=== PATIENT | female | born 1985 | race Hispanic/Latino ===

== ENCOUNTER 2021-12-08 10:37 | Outpatient (CLI) | payer BC, SELFPAY ==
[2021-12-08 10:51] LABS: Basophils Absolute Auto 0.1 K/mm3 (0.0-0.1); Basophils Percent Auto 0.9 % (0.2-1.2); Eosinophils Absolute Auto 0.1 K/mm3 (0-0.3); Eosinophils Percent Auto 1.3 % (0-4.4); Hematocrit 33.6 % (37.0-47.0); Hemoglobin 10.2 g/dL (12.0-15.0); Immature Granulocyte Absolute 0.02 K/mm3 (0.00-0.031); Immature Granulocyte Percent A 0.3 % (0-0.5); Lymphocytes Absolute Auto 2.34 K/mm3 (0.9-3.2); Lymphocytes Percent Auto 36.7 % (18.3-44.2); Mean Corpuscular HGB Conc 30.4 g/dl (32-36); Mean Corpuscular Hemoglobin 27.1 pg (26-34); Mean Corpuscular Volume 89.4 fl (80-100); Mean Platelet Volume 10.2 fl (7.4-10.4); Monocytes Absolute Auto 0.3 K/mm3 (0.1-0.6); Monocytes Percent Auto 5.3 % (2.6-8.5); Neutrophils Absolute Auto 3.5 K/mm3 (1.3-6.7); Neutrophils Percent Auto 55.5 % (45.5-73.1); Platelet Count Result 361 k/mm3 (150-375); Red Blood Count 3.76 M/mm3 (4.2-5.4); Red Cell Distribution Width 14.9 % (11.5-14.5); White Blood Count 6.4 K/mm3 (4.5-10.0)
[2021-12-08 11:01] LABS: Alanine Aminotransferase 9 U/L (6-35); Albumin Level 4.5 g/dL (3.5-5.1); Alkaline Phosphatase 62 U/L (38-126); Amylase 93 U/L (30-110); Anion Gap 8 mmol/L (8-16); Aspartate Amino Transferase 17 U/L (14-36); Bilirubin,Total 0.4 mg/dL (0.2-1.3); Blood Urea Nitrogen 13 mg/dL (7-17); Calcium 8.9 mg/dL (8.4-10.2); Carbon Dioxide 27 mmol/L (22-30); Chloride 105 mmol/L (98-107); Estimated Glomerular Filt Rate > 60; Glucose 70 mg/dL (65-110); Lipase 92 U/L (23-300); Sodium 140 mmol/L (137-145)
== END 2021-12-08 10:38 | disposition home or self-care (01) ==
PROVIDERS: PCP Internal Medicine; Visit Provider Surgery
DX: R10.11 Right upper quadrant pain (principal)
CPT/HCPCS: 36415; 80053; 82150; 83690; 85025

== ENCOUNTER 2021-12-15 00:15 | Day surgery (SDC) | payer BC, SELFPAY ==
[2021-12-10 10:19] VITALS: BMI 25.6
[2021-12-15 12:15] VITALS: BP 95/56; PULSE 85; RESP 16; TEMP 36.7; O2SAT 100
[2021-12-15] MEDS: LACTATED RINGERS 1,000 ML 150 ML IV CONT (12:17)
--- NOTE | 2021-12-15 12:36 | WPDANESEPPF ---
Anes - Initial Pre Proc Eval Procedure: Operation Date: 12/15/21 13:30 Proposed Procedures p Esophagogastroduodenoscopy - Bernardo Alvarado MD Date/Time: 12/15/21 12:36 Surgeon: Bernardo Alvarado MD Pre Op Diagnosis: RUQP Patient Data Age: 36 Gender: F Height: 1.63 m Weight: 66.7 kg Last Vital Signs Temp 36.7 C 12/15/21 12:15 Pulse 85 12/15/21 12:15 Resp 16 12/15/21 12:15 BP 95/56 L 12/15/21 12:15 Pulse Ox 100 12/15/21 12:15 O2 Del Method Room Air 12/15/21 12:15 Allergies Allergy/AdvReac Type Severity Reaction Status Date / Time Penicillins Allergy Unknown Verified 12/15/21 12:14 Home Medications Medication Instructions Recorded Confirmed Type bupropion HCl 150 mg 24 hr tablet, 150 mg PO QAM 12/08/21 12/15/21 History extended release rosuvastatin 40 mg tablet (Crestor) 40 mg PO DAILY 12/08/21 12/15/21 History Patient hx anesthesia problems: none Family hx anesthesia problems: none Results Review: All pre-operative results and documents have been reviewed as part of the pre-operative evaluation. [facility] Past Medical History Medical History (Updated 12/08/21 @ 10:38 by Olinda Iglesias) Asthma Depression GERD (gastroesophageal reflux disease) High cholesterol Peptic ulcer disease Surgical History Surgical History (Updated 12/08/21 @ 10:38 by Olinda Iglesias) H/O gastric sleeve 2020 Family History Family History (Updated 12/08/21 @ 09:55 by MAGDY Blandon) Other Cerebrovascular accident Diabetes mellitus Heart disease Hypertension Social History Social History (Updated 12/08/21 @ 09:55 by MAGDY Blandon) Smoking status: Never smoker Alcohol intake: never Substance use: current Substance use type: does not use Living arrangements: with roommate(s) Spiritual care concerns: No Anes - Eval Final PreProcedure Day of Procedure 12/15/21 12:36 Patient weight: normal Heart: regular rate and rhythm Lungs: clear to auscultation and normal air movement Airway: Mallampati scale class II Neurological: alert and oriented Last oral intake: >/= 8 hours ASA classification: II Emergent: no Anesthetic plan: proceed Anesthesia type and monitoring: general GIVS Results Review: All pre-operative results and documents have been reviewed as part of the pre-operative evaluation. Informed Consent: The patient's anesthetic plan and its attendant risks and benefits were discussed with the patient/family/POA. Questions were solicited and answers provided to the satisfaction of the patient/family/POA.
--- NOTE | 2021-12-15 13:03 | PM.HPGS ---
History of Present Illness History of Present Illness Consent: Risks, benefits, and alternatives have been discussed and questions answered. Patient agrees to proceed with procedure. Chief complaint: RUQP Narrative: Luz Maria Hunter is a 36 year old female with intermittent ruq pain (ultrasound showed cholelithiasis), remote history of gastric sleeve and currently using ppi but not helping. Review of Systems Constitutional: Constitutional: Denies headache(s) and Denies weakness Eyes: Eyes: Denies blurry vision ENT: Reports Normal hearing present, Denies headache(s) and Denies neck pain Cardiovascular: Cardiovascular: Denies chest pain and Denies dyspnea Respiratory: Respiratory: Denies dyspnea Gastrointestinal: Gastrointestinal: Reports no additional gastrointestinal complaints Genitourinary: Genitourinary: Denies dysuria Musculoskeletal: Musculoskeletal: Denies neck pain Integumentary/Breasts: Skin/Breast: Denies dry skin Neurologic: Reports Normal hearing present, Denies headache(s) and Denies weakness Psychiatric: Psychiatric: Denies anxiety Endocrine: Endocrine: Denies change in body appearance Hematologic/Lymphatic: Hematologic/Lymphatic: Denies easy bleeding Allergic/Immunologic: Allergic/Immunologic: Denies urticaria PMFSH Past Medical History Medical History (Updated 12/08/21 @ 10:38 by Olinda Iglesias) Asthma Depression GERD (gastroesophageal reflux disease) High cholesterol Peptic ulcer disease Surgical History Surgical History (Updated 12/08/21 @ 10:38 by Olinda Iglesias) H/O gastric sleeve 2020 Family History Family History (Updated 12/08/21 @ 09:55 by MAGDY Blandon) Other Cerebrovascular accident Diabetes mellitus Heart disease Hypertension Social History Social History (Updated 12/08/21 @ 09:55 by MAGDY Blandon) Smoking status: Never smoker Alcohol intake: never Substance use: current Substance use type: does not use Living arrangements: with roommate(s) Spiritual care concerns: No Meds Home Medications and Allergies Home Medications Medication Instructions Recorded Confirmed Type bupropion HCl 150 mg 24 hr tablet, 150 mg PO QAM 12/08/21 12/15/21 History extended release rosuvastatin 40 mg tablet (Crestor) 40 mg PO DAILY 12/08/21 12/15/21 History Allergies Allergy/AdvReac Type Severity Reaction Status Date / Time Penicillins Allergy Unknown Verified 12/15/21 12:14 Vital Signs Vital Signs - 24 hr 12/15/21 12:15 Temperature 98.1 F Pulse Rate 85 Respiratory Rate 16 Blood Pressure 95/56 L Pulse Oximetry 100 Oxygen Delivery Room Air Exam Const: General: comfortable and no acute distress HENMT: General nose exam: Normal nares present Eyes: General: appearance normal, both eyes and all related structures Neck: Neck: no JVD Resp: Auscultation: clear to auscultation bilaterally Cardio: Rate: regular rate Rhythm: regular rhythm GI: Inspection: non-distended GI Palp: Yes Soft to palpation Skin: General skin exam: normal color Neuro: General: gait normal Speech: normal speech Extrem: General: normal to inspection Psych: Mental Status: mental status grossly normal Assessment and Plan Assessment and plan (1) RUQ pain: Code(s): R10.11 - Right upper quadrant pain Status: Acute Assessment and Plan: will assess if pud, etc if negative then she will see again surgery for consideration of cholecystectomy if persistent pain (2) Cholelithiasis: Code(s): K80.20 - Calculus of gallbladder without cholecystitis without obstruction Status: Acute (3) H/O gastric sleeve: Code(s): Z90.3 - Acquired absence of stomach [part of] Status: Acute
[2021-12-15 13:15] VITALS: BP 104/46; PULSE 56; RESP 16; O2SAT 100
[2021-12-15 13:25] VITALS: BP 95/54; PULSE 75; RESP 14; O2SAT 100
[2021-12-15 13:35] VITALS: BP 100/55; PULSE 69; RESP 17; O2SAT 100
== END 2021-12-15 14:07 | disposition home or self-care (01) ==
PROVIDERS: PCP Internal Medicine; Visit Provider Internal Medicine Gastroenterology
PROC: 0DJ08ZZ Inspection of Upper Intestinal Tract, Via Natural or Artificial Opening Endoscopic (ICD-10-PCS; CPT 43235; principal; 2021-12-15 13:30)
DX: R10.11 Right upper quadrant pain (principal); G43.909 Migraine, unspecified, not intractable, without status migrainosus; K29.50 Unspecified chronic gastritis without bleeding; F32.A Depression, unspecified; K21.9 Gastro-esophageal reflux disease without esophagitis; E78.00 Pure hypercholesterolemia, unspecified; Z87.11 Personal history of peptic ulcer disease; Z90.3 Acquired absence of stomach [part of]
CPT/HCPCS: 43239; 88305; J2704; J7120

== ENCOUNTER 2021-12-21 00:38 | Day surgery (SDC) | payer BC, SELFPAY ==
[2021-12-17 12:32] VITALS: BMI 25.2
--- NOTE | 2021-12-17 12:39 | PC.NURSE ---
Report to the Outpatient Waiting Room, entrance under the green pavilion located off [facility], at time 0600 on date 12/21/21. OR Time: 0730. - You and your visitor will be asked a series of questions to screen for COVID 19 for your protection. - Only one visitor is allowed at this time. - The patient visitor is requested to leave or wait in car when not with patient. - A mask is required within the hospital. Patients may have clear liquids (water, carbonated beverages, clear teas, apple juice) until 3 hours prior to surgery with a maximum of 20 ounces. - No food from midnight until time of surgery Take the following medications with a SIP of water the morning of surgery: WELLBUTRIN Medications to discontinue per physician: N/A Date to take last dose: N/A Please no make-up, nail romansh, hairspray, perfume, deodorant, or body powder the day of surgery. No jewelry (including any body piercings) or valuables the day of surgery, leave them at home. Please take a shower or bath the night before, or the morning of, surgery with an antibacterial soap(HIBICLENS). Wear comfortable, loose fitting clothing. - Jewelry must be removed prior to entering the operating room. Rings and piercings that are not removed may be cut off. - The hospital will not accept responsibility for valuables. - Please leave all valuables, including medications, at home the day of surgery. If you are going home after surgery, a licensed delivery motorcycle driver must drive you home. - NO public transportation without another adult. - We recommend that an adult stay with you for 24 hours following discharge. - We also recommend that you do not drive, make important decision, drink alcoholic beverages, or take any drugs that were not prescribed by your health care provider for at least 24 hours after your discharge time. Follow any additional instructions given to you from your surgeon. If you or anyone in your household have experienced Covid symptoms in the past week, please notify your surgeon or the nurse liaison at the phone number below for possible testing. Telephone instructions given to PT - JERALD RUSH and asked if any additional questions and then verbalized understanding. Patient advised to call surgeon office or pre surgery nurse liaison [phone] if any additional questions.
[2021-12-21] VITALS (14 sets, daily range): BP systolic 92–117; BP diastolic 57–73; PULSE 54–105; RESP 10–25; TEMP 36.2–36.3; O2SAT 100
--- NOTE | 2021-12-21 05:55 | ECG_ITS ---
Measurements Intervals [place] Rate: 70 P: 60 SC: 136 QRS: 55 QRSD: 82 T: 48 QT: 408 QTc: 442 Interpretive Statements SINUS RHYTHM NORMAL ECG NO PREVIOUS ECG AVAILABLE FOR COMPARISON Electronically Signed On 12-21-2021 14:07:47 CDT by Reggie Luz M.D.
[2021-12-21] MEDS: LACTATED RINGERS 1,000 ML 30 ML IV CONT ×3 (06:50→11:59)
[2021-12-21] MEDS: KETOROLAC 15 MG/ML VIAL (*BKC) IV PUSH (07:00)
[2021-12-21] MEDS: ACETAMINOPHEN 500 MG TABLET 1000 MG PO (07:01)
--- NOTE | 2021-12-21 07:11 | WPDANESEPPF ---
Anes - Initial Pre Proc Eval Procedure: Operation Date: 12/21/21 07:30 Proposed Procedures p Laparoscopic Cholecystectomy with Possible Intraoperative Cholangiogram, Possible Open - Panchito Avila MD Date/Time: 12/21/21 07:11 Surgeon: Panchito Avila MD Pre Op Diagnosis: Cholelithiasis Patient Data Age: 36 Gender: F Height: 1.63 m Weight: 66.68 kg Allergies Allergy/AdvReac Type Severity Reaction Status Date / Time Penicillins Allergy Anaphylaxis Verified 12/17/21 12:31 Home Medications Medication Instructions Recorded Confirmed Type bupropion HCl 150 mg 24 hr tablet, 150 mg PO QAM 12/08/21 12/17/21 History extended release rosuvastatin 40 mg tablet (Crestor) 40 mg PO DAILY 12/08/21 12/17/21 History Laboratory Tests 12/21/21 06:53 Total Bilirubin Pending Direct Bilirubin Pending AST Pending ALT Pending Alkaline Phosphatase Pending Total Protein Pending Albumin Pending Amylase Pending Lipase Pending Patient hx anesthesia problems: none Family hx anesthesia problems: none Results Review: All pre-operative results and documents have been reviewed as part of the pre-operative evaluation. [facility] Past Medical History Medical History (Updated 12/08/21 @ 10:38 by Olinda Iglesias) Asthma Depression GERD (gastroesophageal reflux disease) High cholesterol Peptic ulcer disease Surgical History Surgical History (Updated 12/08/21 @ 10:38 by Olinda Iglesias) H/O gastric sleeve 2020 Family History Family History (Updated 12/08/21 @ 09:55 by MAGDY Blandon) Other Cerebrovascular accident Diabetes mellitus Heart disease Hypertension Social History Social History (Updated 12/08/21 @ 09:55 by MAGDY Blandon) Smoking status: Never smoker Alcohol intake: never Substance use: current Substance use type: does not use Living arrangements: with family Spiritual care concerns: No Anes - Eval Final PreProcedure Day of Procedure 12/21/21 07:11 Patient weight: normal Heart: regular rate and rhythm Lungs: clear to auscultation Airway: Mallampati scale class II Neurological: alert and oriented Last oral intake: >/= 8 hours ASA classification: II Emergent: no Anesthetic plan: proceed Anesthesia type and monitoring: general ETT and standard monitoring Results Review: All pre-operative results and documents have been reviewed as part of the pre-operative evaluation. Informed Consent: The patient's anesthetic plan and its attendant risks and benefits were discussed with the patient/family/POA. Questions were solicited and answers provided to the satisfaction of the patient/family/POA.
--- NOTE | 2021-12-21 07:16 | WPDHPUPDATE1 ---
History and Physical Update Update Date/Time: 12/21/21 07:16 History and Physical has been reviewed, including an updated exam of the patient. There are changes in the patient's condition. She has had an EGD with Dr. Vasquez which showed only mild gastritis and no other explanation for her continuing epigastric pain. We now plan a laparoscopic cholecystectomy, poss IOC, possible open cholecystectomy.. Risks, benefits, and alternatives have been discussed and questions answered. Patient agrees to proceed with procedure.
[2021-12-21 07:18] LABS: Alanine Aminotransferase 10 U/L (6-35); Albumin Level 4.1 g/dL (3.5-5.1); Alkaline Phosphatase 55 U/L (38-126); Amylase 86 U/L (30-110); Aspartate Amino Transferase 19 U/L (14-36); Bilirubin,Total 0.6 mg/dL (0.2-1.3); Lipase 91 U/L (23-300)
[2021-12-21] MEDS: ceFAZolin 2 GM/D5W 50 ML 2 GM/50 ML BAG IVPB (07:33)
[2021-12-21] MEDS: BUPIVACAINE/EPINEPHRINE 0.25% 50 ML VIAL INFILTRATE (09:00)
--- NOTE | 2021-12-21 09:24 | W.PM.PROC2 ---
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 She also had some left upper quadrant pain. Prior to committing to the operation we had her see GI and an EGD was done showing only mild gastritis and a well completed sleeve gastrectomy. She has been on PPI twice a day for about 2 weeks. (pantoprazole 40 mg b.i.d.) Findings Unremarkable bluish gallbladder slightly distended. No significant adhesions under the umbilicus or in the right upper quadrant. Left lobe of the liver was visual visualized but no other specific investigation of the left upper quadrant ensued. No groin hernias identified on initial exploration. Description of Procedure Patient was seen preoperatively in the holding area and risks, benefits and alternatives confirmed. Patient was taken to the operating room and general anesthesia was induced. A time out was then preformed with the surgery team confirming patient and site of surgery. The abdomen was prepped and draped in the usual sterile fashion. Incision was made just below the umbilicus with an 11 blade knife. The patient had lost a lot a weight so tissues were spongy and it was a fairly deep incision at the umbilicus. Were able to get in successfully under direct vision and placed the Ahuja cannula. Placed 2 stay sutures of O- Vicryl on either side of the mid-line fascia beneath the umbilicus and was then able to slide in the Ahuja cannula through the fascial defect into the peritoneum. First under low flow and then under high flow the abdomen was insufflated with carbon dioxide never exceeding a pressure of 14. Three 5 mm trocars were then introduced under direct vision. The following trocars were introduced under direct vision: a 5 mm in the epigastrium and two 5 mm trocars along the right costal margin laterally in the subcostal area. I did place the epigastric port right at 1 the scars from her previous sleeve gastrectomy surgery. There were not any adhesions to the underside of the gallbladder. I then carefully used the L-shaped cautery and the [place] dissector to dissect out the triangle of [place]. This patient's anatomy was very clear. i was then was able to dissect out both the cystic duct and cystic artery and identify a window of safety. The gall bladder was grasped and the cystic duct and artery were dissected free and clipped with an 5 mm endo-clip stove polisher. The cystic duct and artery were clipped with use of 2 clips on the patient's side 1 on the gallbladder side utilizing a 5 mm endoclip-stove polisher. The cystic duct was then transected. The cystic artery was also transected at this point. The gall bladder was removed using electrocautery and then removed from the abdomen using a large 10 mm grasper via the umbilical incision. The trocars were removed visualizing hemostasis and the remaining gas evacuated. Because the tissues were so deep I felt that we would get a better closure if we used the Kaveh cone and a 1. Vicryl to be passed with a needle Passer. This was done while watching from the subcostal ports with the 5 mm laparoscoped. Two separate 1. Vicryl sutures were passed to approximate the fascia after removing the Crow cannula under direct vision. These 2 sutures were left long and then after we let all the gas of his escape and removed the 5 mm ports we proceeded to close the more super fashion visual area of the umbilical incision in the standard way as described below. The large trocar site at the umbilicus was closed with use of the 2 stay sutures of 0 Vicryl mentioned above and also a figure of 8 O-Vicryl suture. The 2 s
[2021-12-21] MEDS: fentaNYL CITRATE INJ (*CRX) 100 MCG/2 ML VIAL 25 MCG IV PUSH (10:45)
[2021-12-21] MEDS: ONDANSETRON INJ 4 MG/2 ML VIAL IV PUSH (11:35)
--- NOTE | 2021-12-21 11:45 | SUR.PHASEII ---
CORRECTION: CHARTING ON WORKLIST AT 1125 SHOULD BE AT 1056.
[2021-12-21] MEDS: diphenhydrAMINE HCl INJ 50 MG/ML VIAL 12.5 MG IV PUSH (11:58)
--- NOTE | 2021-12-21 12:16 | SUR.PHASEII ---
NAUSEA SOMEWHAT BETTER.
[2021-12-21] MEDS: oxyCODONE HCL (*CRX) 5 MG TAB IR PO (13:04)
== END 2021-12-21 13:34 | disposition home or self-care (01) ==
PROVIDERS: PCP Internal Medicine; Visit Provider Surgery
PROC: 0FT44ZZ Resection of Gallbladder, Percutaneous Endoscopic Approach (ICD-10-PCS; CPT 47562; principal; 2021-12-21 07:30)
DX: K81.1 Chronic cholecystitis (principal); K21.9 Gastro-esophageal reflux disease without esophagitis; F32.A Depression, unspecified; J45.909 Unspecified asthma, uncomplicated; E78.00 Pure hypercholesterolemia, unspecified; Z87.11 Personal history of peptic ulcer disease; Z90.3 Acquired absence of stomach [part of]; F41.9 Anxiety disorder, unspecified; R10.11 Right upper quadrant pain; R50.9 Fever, unspecified; K29.70 Gastritis, unspecified, without bleeding
CPT/HCPCS: 47562; 36415; 80076; 82150; 83690; 88304; 93005; A9270; J0690; J1100; J1170; J1200; J1885; J2250; J2405; J2704; J2710; J3010; J7030; J7120; Q9966

== ENCOUNTER 2021-12-28 12:08 | Emergency (ER) | payer BC, SELFPAY ==
--- NOTE | ~2021-12-28 | CT_ITS ---
EXAMINATION: CT abdomen pelvis w con DATE: 12/28/2021 14:20 INDICATION: Abdominal pain. TECHNIQUE: Computed tomography (CT) of the abdomen and pelvis was performed with 100 mL Omnipaque 350 intravenous contrast. Automated exposure control and iterative reconstruction technique were employe d. The dose-length product was 290.98 mGy-cm. COMPARISON: None. FINDINGS: The visualized portions of the lung bases are clear without pneumonia or pleural effusion. The heart size is normal. No pericardial effusion. There are surgical changes of the stomach. There a re changes of cholecystectomy. The spleen, pancreas, adrenal glands, and kidneys are normal. There ar e no dilated loops of bowel. The appendix is normal. There is subcutaneous fat stranding around the u mbilicus, consistent with inflammation from recent surgery. There are no pathologically enlarged lymp h nodes. There is no free intraperitoneal fluid. There is mild thoracolumbar spondylosis. IMPRESSION: 1. Expected findings of recent cholecystectomy. Reviewed, dictated and finalized at location A.
--- NOTE | 2021-12-28 12:09 | ECG_ITS ---
Measurements Intervals [place] Rate: 80 P: 52 NC: 133 QRS: 53 QRSD: 77 T: 32 QT: 359 QTc: 416 Interpretive Statements SINUS RHYTHM COMPARED TO ECG 12/21/2021 07:04:07 NO SIGNIFICANT CHANGES Electronically Signed On 12-29-2021 16:22:49 CDT by Bee Baldwin M.D.
[2021-12-28 12:11] VITALS: BP 107/76; PULSE 80; RESP 14; TEMP 36.9; O2SAT 100
[2021-12-28 12:19] LABS: Glucose Point of Care 75 mg/dl (65-105)
[2021-12-28 12:44] VITALS: BP 101/69; PULSE 75; RESP 10; TEMP 37; O2SAT 100
[2021-12-28 13:38] LABS: Basophils Absolute Auto 0.1 K/mm3 (0.0-0.1); Basophils Percent Auto 1.1 % (0.2-1.2); Eosinophils Absolute Auto 0.1 K/mm3 (0-0.3); Eosinophils Percent Auto 2.1 % (0-4.4); Hematocrit 36.4 % (37.0-47.0); Hemoglobin 10.5 g/dL (12.0-15.0); Immature Granulocyte Absolute 0.02 K/mm3 (0.00-0.031); Immature Granulocyte Percent A 0.3 % (0-0.5); Lymphocytes Percent Auto 35.6 % (18.3-44.2); Mean Corpuscular HGB Conc 28.8 g/dl (32-36); Mean Corpuscular Hemoglobin 26.4 pg (26-34); Mean Corpuscular Volume 91.5 fl (80-100); Mean Platelet Volume 10.6 fl (7.4-10.4); Monocytes Absolute Auto 0.3 K/mm3 (0.1-0.6); Neutrophils Absolute Auto 3.5 K/mm3 (1.3-6.7); Neutrophils Percent Auto 55.9 % (45.5-73.1); Platelet Count Result 330 k/mm3 (150-375); Red Blood Count 3.98 M/mm3 (4.2-5.4); Red Cell Distribution Width 14.6 % (11.5-14.5); White Blood Count 6.2 K/mm3 (4.5-10.0)
[2021-12-28] MEDS: SODIUM CHLORIDE 0.9% IV 1,000 ML 999 ML IV CONT (13:43)
[2021-12-28 13:53] LABS: Lipase 94 U/L (23-300); Magnesium 1.9 mg/dL (1.6-2.3)
[2021-12-28 13:55] LABS: Alanine Aminotransferase 13 U/L (6-35); Albumin Level 4.9 g/dL (3.5-5.1); Alkaline Phosphatase 69 U/L (38-126); Anion Gap 12 mmol/L (8-16); Aspartate Amino Transferase 21 U/L (14-36); Bilirubin,Total 0.5 mg/dL (0.2-1.3); Blood Urea Nitrogen 9 mg/dL (7-17); Calcium 9.4 mg/dL (8.4-10.2); Carbon Dioxide 24 mmol/L (22-30); Chloride 104 mmol/L (98-107); Estimated CRCL calculation 84 ml/min; Estimated Glomerular Filt Rate > 60; Glucose 74 mg/dL (65-110); Potassium 4.6 mmol/L (3.4-5.0); Sodium 140 mmol/L (137-145)
[2021-12-28 13:58] VITALS: BP 99/48; PULSE 65; RESP 13; O2SAT 100
[2021-12-28 14:17] LABS: Burr Cells 1+ (NORMAL); Platelet Estimate Adequate (Adequate); Poikilocytosis 1+ (NORMAL)
--- NOTE | 2021-12-28 14:45 | ED.GENADULT ---
HPI - General Adult General Chief complaint: Weakness Stated complaint: weakness Time Seen by Provider: 12/28/21 12:42 History of Present Illness HPI narrative: Patient is a 36-year-old female who presents the emergency department with chief complaint of generalized weakness. The patient reports that she has history of a gastric sleeve and also recently had a laparoscopic cholecystectomy. The patient states that today she feels very weak and has had some discomfort in her abdomen. The patient states that she feels as though she is lacking in nutrients Related Data Home Medications Medication Instructions Recorded Confirmed bupropion HCl 150 mg 24 hr tablet, 150 mg PO QAM 12/08/21 12/21/21 extended release rosuvastatin 40 mg tablet (Crestor) 40 mg PO DAILY 12/08/21 12/21/21 Allergies Allergy/AdvReac Type Severity Reaction Status Date / Time Penicillins Allergy Anaphylaxis Verified 12/21/21 07:35 Review of Systems Review of Systems: A 10 system review of systems was completed on the patient and is negative except for what is stated in the HPI. Nursing and ancillary documentation was reviewed. [facility] Past Medical History Medical History Asthma Depression GERD (gastroesophageal reflux disease) High cholesterol Peptic ulcer disease Surgical History Surgical History H/O gastric sleeve 2020 Family History Family History Other Cerebrovascular accident Diabetes mellitus Heart disease Hypertension Social History Social History Smoking status: Never smoker Alcohol intake: never Substance use: current Substance use type: does not use Spiritual care concerns: No Exam Narrative: GENERAL: Well-appearing, well-nourished, and in no acute distress. HEAD: Normocephalic, atraumatic. EYES: PERRLA and EOMI. ENT: Nares clear, no rhinorrhea or epistaxis. Mucous membranes moist. NECK: Supple. CHEST: Clear to auscultation. No respiratory distress. HEART: Regular rate and rhythm. No murmur heard. Normal peripheral pulses. ABDOMEN: Soft, nontender, nondistended, normal active bowel sounds. EXTREMITIES: Normal range of motion. No edema. SKIN: Warm, dry, no rash. NEURO: No focal deficits. Alert and oriented x3. PSYCH: Normal mood and affect. Course Course Emergency Course: Patient received IV fluids in the emergency department and is feeling much better at this time. CT scan showed no evidence of acute intra-abdominal pathology. Vital Signs Vital signs: Vital Signs Temperature 36.9 C 12/28/21 12:11 Pulse Rate 80 12/28/21 12:11 Respiratory Rate 14 12/28/21 12:11 Blood Pressure 107/76 12/28/21 12:11 Pulse Oximetry 100 12/28/21 12:11 Oxygen Delivery Room Air 12/28/21 12:11 Temperature 37.0 C 12/28/21 12:44 Pulse Rate 65 12/28/21 13:58 Respiratory Rate 13 12/28/21 13:58 Blood Pressure 99/48 L 12/28/21 13:58 Pulse Oximetry 100 12/28/21 13:58 Oxygen Delivery Room Air 12/28/21 12:11 Medical Decision Making Vital Signs Vital Signs: Vital Signs Temperature 36.9 C 12/28/21 12:11 Pulse Rate 80 12/28/21 12:11 Respiratory Rate 14 12/28/21 12:11 Blood Pressure 107/76 12/28/21 12:11 Pulse Oximetry 100 12/28/21 12:11 Oxygen Delivery Room Air 12/28/21 12:11 Temperature 37.0 C 12/28/21 12:44 Pulse Rate 65 12/28/21 13:58 Respiratory Rate 13 12/28/21 13:58 Blood Pressure 99/48 L 12/28/21 13:58 Pulse Oximetry 100 12/28/21 13:58 Oxygen Delivery Room Air 12/28/21 12:11 Lab Data Result diagrams: 12/28/21 13:28 12/28/21 13:28 Labs: Lab Results 12/28/21 12/28/21 12/28/21 Range/Units 12:15 13:28 13:28 WBC 6.2 (4.5-10.0) K/
[2021-12-28 14:57] LABS: Appearance Urine Slightly Cloudy (Clear); Bilirubin Urine Negative (Negative); Blood Urine Negative (Negative); Color Urine Yellow (Yellow); Glucose Urine UA Negative (Negative); Ketones Urine Negative (Negative); Leukocyte Esterase Ur Negative LEU/UL (Negative); Nitrate Urine Negative (Negative); Protein Urine Negative (Negative); Urobilinogen Urine 0.2 mg/dL (<2.0); pH Urine 6.5 (5.0-9.0)
[2021-12-28 15:04] LABS: Bacteria Urine Trace /hpf; Mucus Urine Rare /lpf; RBC Urine 0-2 /hpf (0-2); Squamous Epithelial Cell Urine Rare /hpf (Few)
[2021-12-28 15:21] LABS: Add Urine Microscopic? YES
[2021-12-28 16:33] VITALS: BP 101/71; PULSE 67; RESP 18; O2SAT 98
== END 2021-12-28 16:36 | disposition home or self-care (01) ==
PROVIDERS: Emergency Provider Emergency Medicine; PCP Internal Medicine
DX: N39.0 Urinary tract infection, site not specified (principal); R53.1 Weakness; E86.0 Dehydration; R10.84 Generalized abdominal pain; J45.909 Unspecified asthma, uncomplicated; E78.00 Pure hypercholesterolemia, unspecified; K21.9 Gastro-esophageal reflux disease without esophagitis; F32.A Depression, unspecified; Z87.11 Personal history of peptic ulcer disease; Z98.84 Bariatric surgery status
CPT/HCPCS: 36415; 74177; 80053; 81001; 82948; 83690; 83735; 85025; 87086; 87088; 93005; 96360; 99284; J7030; Q9967

== ENCOUNTER 2022-04-12 11:18 | Outpatient (CLI) | payer BC, SELFPAY ==
[2022-04-12 11:34] LABS: Basophils Absolute Auto 0.1 K/mm3 (0.0-0.1); Basophils Percent Auto 0.8 % (0.2-1.2); Eosinophils Absolute Auto 0.1 K/mm3 (0-0.3); Eosinophils Percent Auto 0.6 % (0-4.4); Hematocrit 35.3 % (37.0-47.0); Hemoglobin 10.8 g/dL (12.0-15.0); Immature Granulocyte Absolute 0.02 K/mm3 (0.00-0.031); Immature Granulocyte Percent A 0.2 % (0-0.5); Lymphocytes Absolute Auto 2.15 K/mm3 (0.9-3.2); Lymphocytes Percent Auto 24.1 % (18.3-44.2); Mean Corpuscular HGB Conc 30.6 g/dl (32-36); Mean Corpuscular Hemoglobin 26.9 pg (26-34); Mean Corpuscular Volume 87.8 fl (80-100); Mean Platelet Volume 10.6 fl (7.4-10.4); Monocytes Absolute Auto 0.4 K/mm3 (0.1-0.6); Monocytes Percent Auto 4.1 % (2.6-8.5); Neutrophils Absolute Auto 6.3 K/mm3 (1.3-6.7); Neutrophils Percent Auto 70.2 % (45.5-73.1); Platelet Count Result 383 k/mm3 (150-375); Red Blood Count 4.02 M/mm3 (4.2-5.4); Red Cell Distribution Width 17.6 % (11.5-14.5); White Blood Count 8.9 K/mm3 (4.5-10.0)
[2022-04-12 13:46] LABS: Iron 41 ug/dL (37-170)
[2022-04-12 13:51] LABS: Alanine Aminotransferase 13 U/L (6-35); Albumin Level 4.5 g/dL (3.5-5.1); Alkaline Phosphatase 64 U/L (38-126); Anion Gap 12 mmol/L (8-16); Aspartate Amino Transferase 20 U/L (14-36); Bilirubin,Total 0.6 mg/dL (0.2-1.3); Blood Urea Nitrogen 15 mg/dL (7-17); Carbon Dioxide 22 mmol/L (22-30); Chloride 103 mmol/L (98-107); Estimated Glomerular Filt Rate > 60; Glucose 84 mg/dL (65-110); Potassium 4.1 mmol/L (3.4-5.0); Sodium 137 mmol/L (137-145)
[2022-04-12 13:55] LABS: Percent Iron Saturation 8 % (20-50)
[2022-04-12 14:15] LABS: Ferritin 5.39 ng/mL (6.24-137)
[2022-04-16 12:58] LABS: Methylmalonic Acid 121 nmol/L (87-318)
[2022-04-17 11:51] LABS: Soluble Transferrin Receptor 2.18 mg/L (0.76-1.76)
== END 2022-04-12 11:19 | disposition home or self-care (01) ==
PROVIDERS: PCP Internal Medicine; Visit Provider Internal Medicine Hematology & Oncology
DX: D64.9 Anemia, unspecified (principal)
CPT/HCPCS: 36415; 80053; 82607; 82728; 82746; 83540; 83550; 83921; 84238; 85025

== ENCOUNTER 2022-06-05 10:16 | Outpatient (CLI) | payer BC, SELFPAY ==
[2022-06-05 11:38] LABS: Basophils Absolute Auto 0.1 K/mm3 (0.0-0.1); Basophils Percent Auto 1.1 % (0.2-1.2); Eosinophils Absolute Auto 0.1 K/mm3 (0-0.3); Eosinophils Percent Auto 1.1 % (0-4.4); Hematocrit 35.6 % (37.0-47.0); Hemoglobin 10.8 g/dL (12.0-15.0); Immature Granulocyte Absolute 0.02 K/mm3 (0.00-0.031); Immature Granulocyte Percent A 0.3 % (0-0.5); Lymphocytes Absolute Auto 2.73 K/mm3 (0.9-3.2); Lymphocytes Percent Auto 42.7 % (18.3-44.2); Mean Corpuscular HGB Conc 30.3 g/dl (32-36); Mean Corpuscular Hemoglobin 27.3 pg (26-34); Mean Corpuscular Volume 90.1 fl (80-100); Mean Platelet Volume 10.3 fl (7.4-10.4); Monocytes Absolute Auto 0.4 K/mm3 (0.1-0.6); Monocytes Percent Auto 5.6 % (2.6-8.5); Neutrophils Absolute Auto 3.1 K/mm3 (1.3-6.7); Neutrophils Percent Auto 49.2 % (45.5-73.1); Platelet Count Result 357 k/mm3 (150-375); Red Blood Count 3.95 M/mm3 (4.2-5.4); White Blood Count 6.4 K/mm3 (4.5-10.0)
[2022-06-05 12:24] LABS: Iron 76 ug/dL (37-170)
[2022-06-05 12:34] LABS: Percent Iron Saturation 16 % (20-50)
[2022-06-05 13:01] LABS: Ferritin 5.37 ng/mL (6.24-137)
== END 2022-06-05 10:17 | disposition home or self-care (01) ==
LOC: ANHLAB 10:19
PROVIDERS: Visit Provider Internal Medicine Hematology & Oncology
DX: D64.9 Anemia, unspecified (principal)
CPT/HCPCS: 36415; 82728; 83540; 83550; 85025

== ENCOUNTER 2022-07-07 08:02 | Outpatient (CLI) | payer BC, SELFPAY ==
[2022-07-07 08:37] LABS: Basophils Absolute Auto 0.1 K/mm3 (0.0-0.1); Basophils Percent Auto 1.1 % (0.2-1.2); Eosinophils Absolute Auto 0.1 K/mm3 (0-0.3); Eosinophils Percent Auto 1.7 % (0-4.4); Hematocrit 38.7 % (37.0-47.0); Hemoglobin 12.1 g/dL (12.0-15.0); Immature Granulocyte Absolute 0.02 K/mm3 (0.00-0.031); Immature Granulocyte Percent A 0.3 % (0-0.5); Lymphocytes Absolute Auto 1.86 K/mm3 (0.9-3.2); Lymphocytes Percent Auto 29.2 % (18.3-44.2); Mean Corpuscular HGB Conc 31.3 g/dl (32-36); Mean Corpuscular Hemoglobin 28.8 pg (26-34); Mean Corpuscular Volume 92.1 fl (80-100); Mean Platelet Volume 9.8 fl (7.4-10.4); Monocytes Absolute Auto 0.3 K/mm3 (0.1-0.6); Monocytes Percent Auto 4.2 % (2.6-8.5); Neutrophils Absolute Auto 4.1 K/mm3 (1.3-6.7); Neutrophils Percent Auto 63.5 % (45.5-73.1); Platelet Count Result 295 k/mm3 (150-375); Red Cell Distribution Width 17.2 % (11.5-14.5); White Blood Count 6.4 K/mm3 (4.5-10.0)
[2022-07-07 08:53] LABS: Iron 80 ug/dL (37-170)
[2022-07-07 09:03] LABS: Percent Iron Saturation 23 % (20-50)
== END 2022-07-07 08:03 | disposition home or self-care (01) ==
LOC: ANHLAB 08:08
PROVIDERS: Visit Provider Internal Medicine Hematology & Oncology
DX: D64.9 Anemia, unspecified (principal); E53.8 Deficiency of other specified B group vitamins
CPT/HCPCS: 36415; 82728; 83540; 83550; 85025

== ENCOUNTER 2022-10-05 12:59 | Outpatient (CLI) | payer BC, SELFPAY ==
[2022-10-05 13:46] LABS: Basophils Absolute Auto 0.1 K/mm3 (0.0-0.1); Basophils Percent Auto 1.3 % (0.2-1.2); Eosinophils Absolute Auto 0.1 K/mm3 (0-0.3); Hematocrit 39.1 % (37.0-47.0); Hemoglobin 12.6 g/dL (12.0-15.0); Immature Granulocyte Absolute 0.01 K/mm3 (0.00-0.031); Immature Granulocyte Percent A 0.2 % (0-0.5); Lymphocytes Absolute Auto 2.74 K/mm3 (0.9-3.2); Lymphocytes Percent Auto 44.8 % (18.3-44.2); Mean Corpuscular HGB Conc 32.2 g/dl (32-36); Mean Corpuscular Volume 96.3 fl (80-100); Mean Platelet Volume 9.5 fl (7.4-10.4); Monocytes Absolute Auto 0.4 K/mm3 (0.1-0.6); Neutrophils Absolute Auto 2.8 K/mm3 (1.3-6.7); Neutrophils Percent Auto 45.7 % (45.5-73.1); Platelet Count Result 309 k/mm3 (150-375); Red Blood Count 4.06 M/mm3 (4.2-5.4); Red Cell Distribution Width 13.7 % (11.5-14.5); White Blood Count 6.1 K/mm3 (4.5-10.0)
[2022-10-05 13:58] LABS: Iron 100 ug/dL (37-170)
[2022-10-05 14:08] LABS: Percent Iron Saturation 27 % (20-50)
== END 2022-10-05 13:00 | disposition home or self-care (01) ==
PROVIDERS: Visit Provider Internal Medicine Hematology & Oncology
DX: D64.9 Anemia, unspecified (principal)
CPT/HCPCS: 36415; 82728; 83540; 83550; 85025

== ENCOUNTER 2023-02-18 12:02 | Outpatient (CLI) | payer BC, SELFPAY ==
[2023-02-18 13:11] LABS: Basophils Absolute Auto 0.1 K/mm3 (0.0-0.1); Basophils Percent Auto 1.2 % (0.2-1.2); Eosinophils Absolute Auto 0.1 K/mm3 (0-0.3); Eosinophils Percent Auto 1.8 % (0-4.4); Hematocrit 37.7 % (37.0-47.0); Hemoglobin 11.6 g/dL (12.0-15.0); Immature Granulocyte Absolute 0.02 K/mm3 (0.00-0.031); Immature Granulocyte Percent A 0.4 % (0-0.5); Lymphocytes Absolute Auto 2.55 K/mm3 (0.9-3.2); Lymphocytes Percent Auto 50.5 % (18.3-44.2); Mean Corpuscular HGB Conc 30.8 g/dl (32-36); Mean Corpuscular Hemoglobin 29.7 pg (26-34); Mean Corpuscular Volume 96.7 fl (80-100); Mean Platelet Volume 10.2 fl (7.4-10.4); Monocytes Absolute Auto 0.2 K/mm3 (0.1-0.6); Monocytes Percent Auto 4.6 % (2.6-8.5); Neutrophils Absolute Auto 2.1 K/mm3 (1.3-6.7); Neutrophils Percent Auto 41.5 % (45.5-73.1); Platelet Count Result 269 k/mm3 (150-375); Red Cell Distribution Width 13.2 % (11.5-14.5); White Blood Count 5.1 K/mm3 (4.5-10.0)
[2023-02-18 13:19] LABS: Iron 87 ug/dL (37-170)
[2023-02-18 13:29] LABS: Percent Iron Saturation 27 % (20-50)
[2023-02-18 14:13] LABS: Folic Acid 5.7 ng/mL (2.76->20)
== END 2023-02-18 12:03 | disposition home or self-care (01) ==
LOC: ANHLAB 12:05
PROVIDERS: Visit Provider Internal Medicine Hematology & Oncology
DX: D64.9 Anemia, unspecified (principal)
CPT/HCPCS: 36415; 82607; 82728; 82746; 83540; 83550; 85025

== ENCOUNTER 2023-03-23 10:45 | Outpatient (CLI) | payer BC, SELFPAY ==
[2023-03-23 12:03] LABS: Basophils Absolute Auto 0.1 K/mm3 (0.0-0.1); Eosinophils Absolute Auto 0.1 K/mm3 (0-0.3); Eosinophils Percent Auto 1.5 % (0-4.4); Hematocrit 40.5 % (37.0-47.0); Hemoglobin 12.2 g/dL (12.0-15.0); Immature Granulocyte Absolute 0.02 K/mm3 (0.00-0.031); Immature Granulocyte Percent A 0.3 % (0-0.5); Lymphocytes Absolute Auto 2.17 K/mm3 (0.9-3.2); Lymphocytes Percent Auto 37.3 % (18.3-44.2); Mean Corpuscular HGB Conc 30.1 g/dl (32-36); Mean Corpuscular Hemoglobin 29.5 pg (26-34); Mean Corpuscular Volume 97.8 fl (80-100); Mean Platelet Volume 10.4 fl (7.4-10.4); Monocytes Absolute Auto 0.3 K/mm3 (0.1-0.6); Neutrophils Absolute Auto 3.2 K/mm3 (1.3-6.7); Neutrophils Percent Auto 54.9 % (45.5-73.1); Platelet Count Result 299 k/mm3 (150-375); Red Blood Count 4.14 M/mm3 (4.2-5.4); Red Cell Distribution Width 13.3 % (11.5-14.5); White Blood Count 5.8 K/mm3 (4.5-10.0)
[2023-03-23 12:53] LABS: Iron 88 ug/dL (37-170)
[2023-03-23 13:03] LABS: Percent Iron Saturation 27 % (20-50)
== END 2023-03-23 10:46 | disposition home or self-care (01) ==
PROVIDERS: Visit Provider Internal Medicine Hematology & Oncology
DX: D64.9 Anemia, unspecified (principal)
CPT/HCPCS: 36415; 83540; 83550; 85025